=== PATIENT | female | born 1960 | race Caucasian/White ===

== ENCOUNTER → 2019-02-09 | Outpatient (CLI) | payer MEDICARE, OTHER ==
[2019-02-09 11:07] LABS: TRIGLYCERIDES 177 mg/dL (<150)
[2019-02-09 11:17] LABS: DIRECT LDL 113 mg/dL (<100)
[2019-02-09 11:19] LABS: VLDL CHOLESTEROL 35.4 mg/dL (10-31)
== END ==
LOC: OD 09:43
PROVIDERS: ATTEND Psychiatry & Neurology Psychiatry
DX: F41.1 Generalized anxiety disorder (principal)
CPT/HCPCS: 36415; 80061; 83036